=== PATIENT | female | born 1975 | race American Indian/Alaskan Native ===

== ENCOUNTER 2017-08-13 09:22 | Outpatient (CLI) | payer OTHER ==
--- NOTE | 2017-08-13 09:56 | XRay Report ---
LEFT HUMERUS RADIOGRAPHS INDICATION: Arm pain. COMPARISON: None similar at this institution. FINDINGS: AP and lateral radiographs demonstrate a comminuted left mid humeral shaft fracture with cortical offset of 4 mm on the lateral view and approximately 2 mm on the frontal view. Some arm swelling not excluded. Approximately 7 mm proximal humeral neck lateral cortical ridge on the frontal view may represent a tug lesion or possible fibrous cortical defect. Numerous extrinsic artifacts. CONCLUSION: Left humeral mid shaft fracture, as described. Thank you for the opportunity to participate in this patient's care.
== END 2017-08-13 09:23 | disposition home or self-care (01) ==
LOC: SPVIMAG 09:22
DX: S42.352A Displaced comminuted fracture of shaft of humerus, left arm, initial encounter for closed fracture (principal); X58.XXXA Exposure to other specified factors, initial encounter; Y93.89 Activity, other specified; Y92.89 Other specified places as the place of occurrence of the external cause; Y99.8 Other external cause status

== ENCOUNTER 2017-08-29 09:27 | Outpatient (CLI) | payer OTHER ==
--- NOTE | 2017-08-29 10:01 | XRay Report ---
LEFT HUMERUS RADIOGRAPHS INDICATION: Closed fracture of humeral shaft. COMPARISON: 08/13/2017. FINDINGS: AP and lateral views again demonstrate left humeral shaft comminuted fracture with slight improved alignment on the attempted lateral projection, near anatomic. Subtle callus developing about the fracture site may be noted on the frontal view with slight angulation. Few extrinsic artifacts. Intact imaged elbow and shoulder articulations. Stable approximately 7 mm proximal humeral neck lateral cortical ridge. CONCLUSION: Expected left mid humeral shaft fracture healing, as described. Please correlate. Thank you for the opportunity to participate in this patient's care.
== END 2017-08-29 09:28 | disposition home or self-care (01) ==
LOC: SPVIMAG 09:27
PROVIDERS: ATTEND Orthopaedic Surgery
DX: S42.302D Unspecified fracture of shaft of humerus, left arm, subsequent encounter for fracture with routine healing (principal); X58.XXXD Exposure to other specified factors, subsequent encounter

== ENCOUNTER 2017-09-24 10:19 | Outpatient (CLI) | payer OTHER ==
--- NOTE | 2017-09-24 11:03 | XRay Report ---
Left humerus: Fracture followup. There is a midshaft fracture with a very minimal posterior angulation. Callus formation is identified to a greater degree than was seen on previous study of August 29. There is a cast surrounding the proximal arm. Impression: Evidence of progressive midshaft fracture healing.
== END 2017-09-24 10:20 | disposition home or self-care (01) ==
LOC: SPVIMAG 10:19
PROVIDERS: ATTEND Orthopaedic Surgery
DX: S42.302D Unspecified fracture of shaft of humerus, left arm, subsequent encounter for fracture with routine healing (principal); M25.742 Osteophyte, left hand; X58.XXXD Exposure to other specified factors, subsequent encounter